=== PATIENT | female | born 1970 | race Caucasian/White ===

== ENCOUNTER 2021-05-20 19:25 | Inpatient (IN) | payer BC ==
[~2021-05-20] VITALS: Ht 157.5 cm; Wt 98.5 kg
[2021-05-20 19:40] VITALS: BP_SYST 162
--- NOTE | 2021-05-20 19:50 | NUR ---
DR. STALLWORTH IN TRIAGE TO EVALUATE PT.
--- NOTE | 2021-05-20 20:43 | NUR ---
Patient to ER bed 5 to gown for evaluation. Side rails up. Report given to ALEX Collado.
[2021-05-20 20:46] LABS: BASOPHILS % (AUTO) 0.4 % (0.0-2.0); EOSINOPHILS # (AUTO) 0.1 K/uL (0.0-0.4); EOSINOPHILS % (AUTO) 0.5 % (0.0-4.0); HEMATOCRIT 41.4 % (36-48); HEMOGLOBIN 14.1 g/dL (12.0-16.0); LYMPHOCYTES # (AUTO) 1.6 K/uL (1.0-5.5); LYMPHOCYTES % (AUTO) 14.4 % (20.5-51.5); MEAN CORPUSCULAR HEMOGLOBIN 31 pg (27-31); MEAN CORPUSCULAR HGB CONC 34 % (32-36); MEAN CORPUSCULAR VOLUME 91 fL (79.0-98.0); MONOCYTES # (AUTO) 1.2 K/uL (0.0-1.0); MONOCYTES % (AUTO) 10.4 % (1.7-9.3); NEUTROPHILS # (AUTO) 8.4 K/uL (1.8-7.7); NEUTROPHILS % (AUTO) 74.3 % (40.0-70.0); PLATELET COUNT (AUTO) 201 K/uL (130-430); RED BLOOD CELL COUNT(AUTO) 4.56 MIL/uL (4.2-6.2); RED CELL DISTRIBUTION WIDTH 13.1 % (9.0-15.0); WHITE BLOOD COUNT (AUTO) 11.3 K/uL (4.8-10.8)
--- NOTE | 2021-05-20 21:00 | NUR ---
PATIENT AAOX4 AND AMBULATORY FROM [facility] C/O ABDOMINAL PAIN X 2 DAYS. + NAUSEA. -N/D. VSS. DENIES ANY SOB OR CHEST PAIN. TOOK TUMS AT HOME WITH NO RELIEF. NO MEDICAL HX. SURGICAL HX OF HYSTERECTOMY WITH FIBROIDS.
[2021-05-20 21:12] LABS: PROTHROMBIN TIME 10.2 SECS (9.5-12.5)
[2021-05-20 21:13] LABS: C-REACTIVE PROTEIN QUANT 9.5 mg/dL (0-0.5)
[2021-05-20 21:25] LABS: CALCIUM 9.8 mg/dL (8.4-11.0); CREATININE 0.87 mg/dL (0.55-1.30)
[2021-05-20 21:42] LABS: TOTAL BILIRUBIN 0.6 mg/dL (0.0-1.0)
[2021-05-20] MEDS ORDERED: ONDANSETRON HCL 4 MG/2 ML VIAL IVP ONE (21:45)
[2021-05-20] MEDS ORDERED: PIPERACILLIN/TAZO 3.38 GM in NS 50 ML IV ONE (21:45)
[2021-05-20] MEDS ORDERED: MORPHINE 4 MG INJ. 4 MG/ML VIAL IVP ONE (21:45)
[2021-05-20] MEDS ORDERED: NACL 0.9% 1,000 ML IV ONE (21:45)
--- NOTE | 2021-05-20 22:09 | NUR ---
Patient will be admitted to [facility]. Admitted to MED SURG unit. PENDING ROOM ASSIGNMENT.. Belongings list completed. Complete and up to date summary report printed. SBAR report to be given at bedside with opportunity for questions.
[2021-05-20] MEDS ORDERED: ACETAMINOPHEN 325 MG TABLET PO PRN (22:15)
[2021-05-20] MEDS ORDERED: MORPHINE 2 MG/ML INJ. SYRINGE IVP PRN (22:15)
[2021-05-20] MEDS ORDERED: ONDANSETRON HCL 4 MG/2 ML VIAL IVP PRN (22:15)
[2021-05-20] MEDS ORDERED: PIPERACILLIN/TAZOBACTAM 3.375 GM/VIAL (ZOSYN) IV ONE (22:27)
[2021-05-20] MEDS ORDERED: ONDANSETRON HCL 4 MG/2 ML VIAL ONE (22:28)
--- NOTE | 2021-05-20 23:01 | NUR ---
Medication reconciliation completed with information provided by PATIENT. Any prior medication reconciliation on file was reviewed and corrected. PT DENIES TAKING ANY MEDICATIONS AT HOME
--- NOTE | 2021-05-20 23:01 | NUR ---
Patient's code status is FULL CODE paperwork completed and placed in chart.
[2021-05-21] VITALS (7 sets, daily range): BP systolic 113–148
--- NOTE | 2021-05-21 00:04 | NUR ---
BED ASSIGNMENT GIVEN. 106B. PATIENT TO BE TAKEN TO FLOOR BY EMT VIA WHEELCHAIR.
--- NOTE | 2021-05-21 00:20 | NUR ---
Admission Note Received patient from ER with diagnosis of acute appendicitis. Initial Plan of Care discussed-patient verbalized understanding. Oriented to room, call light, pain management and safety.
[2021-05-21] MEDS: D5NS 1,000 ML IV SCH ×4 (01:53→15:25)
[2021-05-21] MEDS ORDERED: PIPERACILLIN/TAZOBACTAM 3.375 GM/VIAL (ZOSYN) IV ONE (05:34)
[2021-05-21] MEDS: PIPERACILLIN/TAZO 3.375/DEX-IS 50 ML IV SCH ×3 (05:43→17:31)
[2021-05-21] MEDS: NORMAL SALINE 5 ML DISP.SYRIN IVF SCH ×3 (05:44→21:45)
--- NOTE | 2021-05-21 06:50 | NUR ---
CLOSING NOTES: Patient in bed, eyes closed, breathing evenly and nonlabored on room air, no s/s of distress. Patient has an IV on the right wrist 20G, patent, benign, and flushing. No s/s of infection or infiltration. NPO in place. Strict I&O. Will continue to monitor and endorse care to morning shift nurse. All needs met at this time.
[2021-05-21 07:33] LABS: BILIRUBIN,URINE NEGATIVE (NEGATIVE); BLOOD, URINE NEGATIVE (NEGATIVE); CLARITY/URINE CLEAR (CLEAR); COLOR,URINE YELLOW (YELLOW); GLUCOSE,URINE NEGATIVE (NEGATIVE); KETONES,URINE 1+ (NEGATIVE); LEUKOCYTE ESTERASE ,URINE TRACE (NEGATIVE); NITRITE, URINE NEGATIVE (NEGATIVE); PROTEIN URINE NEGATIVE (NEGATIVE); UROBILINOGEN,URINE 0.2 (0.2-1.0)
--- NOTE | 2021-05-21 10:45 | NUR ---
CHG BATH GIVEN, BEDDDINGS CHANGED. PT SIGNED CONSENT TO SURGERY AND BLOOD TRANSFUSION.
--- NOTE | 2021-05-21 11:22 | NUR ---
PT GOING TO SURGERY NOW. BEING PICKED UP BY SURGERY STAFF.
[2021-05-21] MEDS ORDERED: METOCLOPRAMIDE HCL 10 MG/2 ML VIAL IVP PRN (12:00)
[2021-05-21] MEDS ORDERED: ONDANSETRON HCL 4 MG/2 ML VIAL IVP PRN (12:00)
[2021-05-21] MEDS ORDERED: fentaNYL CITRATE/PF 100 MCG/2 ML AMP IVP PRN ×2 (12:00)
[2021-05-21] MEDS ORDERED: GLYCOPYRROLATE 0.2 MG/ML VIAL ONE (12:45)
[2021-05-21] MEDS ORDERED: fentaNYL CITRATE/PF 100 MCG/2 ML AMP ONE ×2 (12:45→12:55)
[2021-05-21] MEDS ORDERED: NS IRRIG SOLN 1000 ML IR ONE (12:45)
[2021-05-21] MEDS ORDERED: NS 1000 ML IV.SOLN IV ONE (12:45)
[2021-05-21] MEDS ORDERED: PROPOFOL 200MG/ 20ML VIAL (DIPRIVAN) IV ONE (12:45)
[2021-05-21] MEDS ORDERED: ROCURONIUM BROMIDE 10 MG/ML (ZEMURON) ONE (12:45)
[2021-05-21] MEDS ORDERED: WATER FOR IRRIGATION,STERILE 1,000 ML IRRIG.SOLN IR ONE (12:45)
[2021-05-21] MEDS ORDERED: SEVOFLURANE 15 MIN GAS INH ONE (12:45)
[2021-05-21] MEDS ORDERED: MIDAZOLAM HCL 5 MG/ML VIAL (VERSED) IV ONE (12:45)
[2021-05-21] MEDS ORDERED: PHENYLEPHRINE HCL 10 MG/ML VIAL (NEOSYNEPHRINE) ONE (12:45)
[2021-05-21] MEDS ORDERED: LR 1,000 ML IV.SOLN IV ONE (12:45)
[2021-05-21] MEDS ORDERED: HYDROcodone/ACETAMIN 5-325 MG TAB (NORCO/ VICODIN) PO PRN (13:00)
[2021-05-21] MEDS ORDERED: NALOXONE HCL 0.4 MG/ML AMP (NARCAN) IVP PRN (13:00)
--- NOTE | 2021-05-21 13:47 | NUR ---
pt came back from [facility] , s/p rigo ramon, received from amelie faye. vitals wnl, no fever. pt on o2 2l per nc with 99-100% sat. will titrate down as tolerated.
--- NOTE | 2021-05-21 18:39 | NUR ---
pt had lap appy by dr sewell, vitals has been stable, pain meds given, iv abx given. sserved clear liquids, no c/o of n/v , all needs attended to and met.
[2021-05-22] VITALS: BP_SYST 106
[2021-05-22] MEDS: PIPERACILLIN/TAZO 3.375/DEX-IS 50 ML IV SCH ×3 (00:05→12:15)
[2021-05-22] MEDS: D5NS 1,000 ML IV SCH (02:44)
[2021-05-22] MEDS: NORMAL SALINE 5 ML DISP.SYRIN IVF SCH ×2 (05:43→14:27)
[2021-05-22 08:00] VITALS: BP_SYST 129
--- NOTE | 2021-05-22 11:14 | NUR ---
Nutrition Update Tito Scale 18 noted. Pt admitted for acute appendicitis. Diet: regular BMI: 39.7 kg/m2 RD to follow per nutrition care standards.
[2021-05-22 13:02] VITALS: BP_SYST 121
[2021-05-22 16:00] VITALS: BP_SYST 125
[2021-05-22 16:10] VITALS: BP_SYST 125
== END 2021-05-22 16:00 | disposition home or self-care (01) | DRG 343 ==
LOC: SED 19:25 → SMU 22:04
PROVIDERS: ADMIT Surgery; ATTEND Surgery
PROC: 0DTJ4ZZ Resection of Appendix, Percutaneous Endoscopic Approach (ICD-10-PCS; principal; 2021-05-21 11:30)
DX: K35.30 Acute appendicitis with localized peritonitis, without perforation or gangrene (principal); Z20.822 Contact with and (suspected) exposure to COVID-19
CPT/HCPCS: 36415; 76376; 80053; 81003; 82150; 83605; 83690; 84703; 85025; 85610-TC; 85730-TC; 86140; 88304; 96365; 96375; 99285; C1727; J2250; J2270; J2370; J2405; J2543; J2704; J3010; J3490; J7030; J7120

== ENCOUNTER 2024-02-04 13:41 | Emergency (ER) | payer BC ==
[~2024-02-04] VITALS: Ht 157.5 cm; Wt 97.5 kg
[2024-02-04 13:49] VITALS: BP_SYST 155; PULSE 88; RESP 18; TEMP 98.3; O2SAT 97
[2024-02-04] MEDS: IPRATROPIUM/ALBUTEROL SULFATE 3 ML AMPUL.NEB (DUONEB) INH ONE (14:39)
[2024-02-04 14:50] LABS: COVID19 ANTIGEN SOFIA FIA NEGATIVE (NEGATIVE)
[2024-02-04 14:52] LABS: INFLUENZA TYPE A Negative (NEGATIVE); INFLUENZA TYPE B NEGATIVE (NEGATIVE)
[2024-02-04 14:53] LABS: BASOPHILS # (AUTO) 0.1 K/uL (0.0-0.2); BASOPHILS % (AUTO) 0.8 % (0.0-2.0); EOSINOPHILS # (AUTO) 0.3 K/uL (0.0-0.4); HEMOGLOBIN 13.4 g/dL (12.0-16.0)
[2024-02-04 15:01] LABS: EOSINOPHILS % (AUTO) 3.4 % (0.0-4.0); HEMATOCRIT 38.6 % (36-48); LYMPHOCYTES # (AUTO) 2.1 K/uL (1.0-5.5); LYMPHOCYTES % (AUTO) 25.9 % (20.5-51.5); MEAN CORPUSCULAR HEMOGLOBIN 32 pg (27-31); MEAN CORPUSCULAR HGB CONC 35 % (32-36); MEAN CORPUSCULAR VOLUME 90 fL (79.0-98.0); MONOCYTES # (AUTO) 0.8 K/uL (0.0-1.0); MONOCYTES % (AUTO) 9.5 % (1.7-9.3); NEUTROPHILS # (AUTO) 4.9 K/uL (1.8-7.7); NEUTROPHILS % (AUTO) 60.4 % (40.0-70.0); PLATELET COUNT (AUTO) 235 K/uL (130-430); RED BLOOD CELL COUNT(AUTO) 4.27 MIL/uL (4.2-6.2); RED CELL DISTRIBUTION WIDTH 12.8 % (9.0-15.0)
[2024-02-04 15:03] LABS: CALCIUM 9.5 mg/dL (8.4-11.0); CREATININE 0.8 mg/dL (0.55-1.30); POTASSIUM 4.6 mmol/L (3.5-5.1)
[2024-02-04] MEDS ORDERED: ALBMDI INH (15:15)
[2024-02-04] MEDS ORDERED: AUG875 PO (15:15)
[2024-02-04] MEDS ORDERED: METH-776 PO (15:15)
[2024-02-04 15:29] VITALS: BP_SYST 155; PULSE 88; RESP 18; TEMP 98.3; O2SAT 99
== END 2024-02-04 15:26 | disposition home or self-care (01) ==
LOC: SED 13:41
DX: J45.909 Unspecified asthma, uncomplicated (principal); Z20.822 Contact with and (suspected) exposure to COVID-19; Z90.49 Acquired absence of other specified parts of digestive tract; Z90.710 Acquired absence of both cervix and uterus
CPT/HCPCS: 36415; 71045; 80048; 85025; 94640; 99284